=== PATIENT | male | born 1990 | race Caucasian/White ===

== ENCOUNTER 2020-07-10 16:59 | Emergency (ER) | payer MEDICAID, SELFPAY ==
[2020-07-10 18:20] VITALS: BP 141/79; PULSE 53; RESP 20; TEMP 36.9; O2SAT 100; BMI 31.1
[2020-07-10 20:17] VITALS: BP 127/67; PULSE 53; RESP 18; O2SAT 98
[2020-07-10] MEDS: Lidocaine HCl 1 % MPF 5 ML VIAL SUBCUT ×2 (20:50)
--- NOTE | 2020-07-10 21:02 | ED_ITS ---
HPI - Extremity Problem General Chief complaint: Extremity Problem Stated complaint: TOE INJ Time Seen by Provider: 07/10/20 20:24 History of Present Illness HPI Narrative: Patient complains of Right big toe ingrown nail which has been bothering him for many weeks getting worse, no redness no swelling no fever no chills Related Data Previous Rx's Medication Instructions Recorded hydrocortisone 1 appl TOPICAL BID PRN #30 g 07/10/20 ibuprofen 600 mg PO Q6H PRN #20 tab 07/10/20 Allergies Allergy/AdvReac Type Severity Reaction Status Date / Time No Known Allergies Allergy Unverified 03/29/20 17:20 Review of Systems Review of Systems: No fever no chills no rash no joint pain no recent illness no cough no nausea Yes all other systems are reviewed and are negative PMFSH Past Medical History Source: nursing notes reviewed Medical History (Updated 07/10/20 @ 21:07 by ROD De Anda) No known health problems Social History Social History Alcohol intake: never Smoked in Last 30 Days: No Use of substances other than those prescribed or required for medical reasons: No Advance Directives: No Advance Directives Information Provided: Yes Physical Exam Vital Signs: Vital Signs: Last Vital Signs Temp 98.4 F 07/10/20 18:20 Pulse 53 07/10/20 20:17 Resp 18 07/10/20 20:17 BP 127/67 07/10/20 20:17 Pulse Ox 98 07/10/20 20:17 Body Mass Index 31.1 General appearance comfortable relax no acute distress Head is normocephalic atraumatic The neck is supple Respiratory no distress Extremities the right big toe had tenderness and mild redness at the lateral aspect of the right big toe, full range of motion in the toe, no discharge no swelling no fluctuance, no significant redness beyond a little mild redness right over the ingrown section of the toenail Course Course Course Narrative: Procedure note right big toe is cleansed with Betadine Anesthesia was 8 cc of 1% lidocaine for digital block of the right big toe which was successful The ingrown section of toenail was flipped out with a forceps and then trimmed with a scissors with no remaining ingrown section and dressing was applied Discharge Plan Discharge Clinical Impression: Ingrown nail Patient Disposition: Home, Self-Care Additional Instructions: I removed a sharp section of ingrown nail which should relieve the discomfort in 1-2 days Return anytime if worse If this occurs again you can follow with a terra cotta roofer helper as they have a treatment that will prevent recurrence Prescriptions: New hydrocortisone 2.5 % cream 1 appl topical BID PRN (Reason: rash) Qty: 30 RF: 0 ibuprofen 600 mg tablet 600 mg PO Q6H PRN (Reason: pain) Qty: 20 RF: 0 Referrals: Collin Del Toro DPM [Physician] - 2 weeks (Right big toe ingrown nail) Stand Alone Forms: Work/School Release Interventions: ED Discharge Assessment Last Done: 07/10/20 21:22
[2020-07-10] MEDS: Ibuprofen 600 MG TABLET PO (21:14)
== END 2020-07-10 22:00 | disposition home or self-care (01) ==
PROVIDERS: Emergency Provider Emergency Medicine
DX: L60.0 Ingrowing nail (principal); M79.674 Pain in right toe(s); Z79.899 Other long term (current) drug therapy
CPT/HCPCS: 11750; 99284

== ENCOUNTER 2020-10-25 21:00 | Emergency (ER) | payer MEDICAID, SELFPAY ==
[2020-10-25 21:11] VITALS: BP 138/83; PULSE 73; RESP 18; TEMP 36.8; O2SAT 99; BMI 31.1
[2020-10-25 23:00] LABS: Glucose Urine UA NEG (NEG); Leukocyte Esterase Urine NEG (NEG); Nitrite Urine NEG (NEG); PH 7.5 (5.0-8.0); Urine Blood NEG (NEG); Urine Ketones NEG (NEG); Urine Protein NEG (NEG-TRACE)
[2020-10-25 23:01] LABS: Appearance Urine CLEAR; Color Urine YELLOW
[2020-10-25 23:06] LABS: Bacteria Urine TRACE /LPF; RBC Urine 0 /HPF (0); WBC Urine 0 /HPF (0-4)
--- NOTE | 2020-10-25 23:57 | ED.GENADULT ---
HPI - General Adult General Chief complaint: General Medical Stated complaint: uti? Time Seen by Provider: 10/25/20 23:49 Source: patient Mode of arrival: ambulatory Limitations: no limitations History of Present Illness HPI narrative: Patient comes to emergency room complaining of dysuria and 1 episode of hematuria. Patient states for the last 2 days every time that he urinates it ruvalcaba. Patient concerned that he had unprotected sex several days ago. Patient also concerned that he has been seeing penile discharge occasionally. Patient denies flank pain, no fever chills, denies any history of STDs in the past. Related Data Previous Rx's Medication Instructions Recorded hydrocortisone 1 appl TOPICAL BID PRN #30 g 07/10/20 ibuprofen 600 mg PO Q6H PRN #20 tab 07/10/20 doxycycline hyclate 100 mg PO BID #13 cap 10/26/20 Allergies Allergy/AdvReac Type Severity Reaction Status Date / Time No Known Allergies Allergy Unverified 03/29/20 17:20 Review of Systems Review of Systems: Constitutional : No Weight loss, No Fever, No Chills, No Night Sweats, No Fatigue, No Malaise ENT/Mouth : No Hearing loss, No Ear Pain, No Nasal Congestion, No Sinus Pain, No Hoarseness, No sore throat, No Rhinorrhea, No Swallowing Difficulty Eyes: No Eye Pain, No Swelling, No Redness, No Foreign Body, No Discharge, No Vision Changes Cardiovascular : No Chest Pain, No SOB, No Dyspnea on Exertion, No Orthopnea, No Edema, No Palpitations Respiratory : No Cough, No Sputum, No Wheezing, No Smoke Exposure, No Dyspnea Gastrointestinal : No Nausea, No Vomiting, No Diarrhea, No Constipation, No abdominal Pain, No Hematochezia, No Melena Genitourinary : Complaining of 1 episode of hematuria, frequent dysuria, and penile discharge, denies testicular pain Musculoskeletal : No joint pain, No Myalgias, No Joint Swelling Skin : No Skin Lesions, No rash Neuro : No Weakness, No Numbness, No Paresthesias, No Loss of Consciousness, No Dizziness, No Headache Psych : No Anxiety/Panic, No Depression, No SI/HI/AH/VH, No Social Issues, Heme/Lymph: No Bruising, No Bleeding,No Lymphadenopathy Endocrine : No Polyuria, No Polydipsia, No Temperature Intolerance [facility] Past Medical History Medical History No known health problems Social History Social History Alcohol intake: never Advance Directives: No Advance Directives Information Provided: No Physical Exam Vital Signs: Vital Signs: Last Vital Signs Temp 98.3 F 10/25/20 21:11 Pulse 73 10/25/20 21:11 Resp 18 10/25/20 21:11 BP 138/83 10/25/20 21:11 Pulse Ox 99 10/25/20 21:11 Body Mass Index 31.1 Appearance: Alert. Oriented X3. No acute distress. Eyes: Pupils equal, round and reactive to light. ENT: Pharynx normal. Neck: Normal inspection. Neck supple. No lymph nodes noted. No crepitus CVS: Normal heart rate and rhythm. Pulses normal. Normal S1 and S2 Respiratory: No respiratory distress. Breath sounds normal. No Wheezing. No rales Abdomen: Soft and nontender. No rigidity. No distention. : Normal male genitalia, no penile discharge Skin: Skin warm and dry. Normal skin color. Normal skin turgor. Extremities: No lower extremity edema. No lower extremity edema. No Lacerations. No Rash Neuro: Oriented X 3. No motor deficit. No sensory deficit. Moving all extermities. No slurred speech. Course Course Course Narrative: Patient's urinalysis is negative, gonorrhea chlamydia test will be pending. Patient agrees to be treated empirically. Medical Decision Making Lab Data Labs: Lab Results 10/25/20 Range/Units 22:50 Urine Color YELLOW Urine Appearance CLEAR Urine pH 7.5 (5.0-8.0) Ur Specific [place] 1.020 (1.005-1.025) Urine Protein NEG (NEG-TRACE) MG/DL Urine Glucose (UA) NEG (NEG) MG/DL Urine Ketones NEG (NEG) MG/DL Urine Blood NEG (NEG) Urine Nitrite NEG (NEG) Ur Leukocyte Esterase NEG (NEG) Urine RBC 0 (0) /HPF Urine WBC 0 (0-4) /HPF Ur Squamous Epith Cells NONE /LPF Urine Bacteria TRACE /LPF Discharge Plan Discharge Clinical Impression: Exposure to STD Patient Disposition: Home, Self-Care Instructions: Sexually Transmitted Diseases (ED), Safe Sex Practices (ED) Additional Instructions: Please follow-up with your primary care physician tomorrow. If you have any worsening or new symptoms, please return to the emergency room or call 911 Prescriptions: New doxycycline hyclate 100 mg capsule 100 mg PO BID Qty: 13 RF: 0 No Action hydrocortisone 2.5 % cream 1 appl topical BID PRN (Reason: rash) Qty: 30 RF: 0 ibuprofen 600 mg tablet 600 mg PO Q6H PRN (Reason: pain) Qty: 20 RF: 0
[2020-10-26] MEDS: cefTRIAXone sodium 500 MG, Lidocaine HCl 1 % MPF 1 ML IM (00:24)
[2020-10-26 09:08] LABS: CT PCR NOT DETECTED (Not Detect.); NG PCR NOT DETECTED (Not Detect.)
== END 2020-10-26 00:03 | disposition home or self-care (01) ==
PROVIDERS: Emergency Provider Emergency Medicine
DX: R30.0 Dysuria (principal); Z20.2 Contact with and (suspected) exposure to infections with a predominantly sexual mode of transmission; Z79.899 Other long term (current) drug therapy
CPT/HCPCS: 81001; 87491; 87591; 96372; 99283; J0696

== ENCOUNTER 2021-04-13 23:12 | Emergency (ER) | payer OTHER, MEDICAID, SELFPAY ==
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
--- NOTE | ~2021-04-13 | XR_ITS ---
EXAMINATION: XR RIBS, RIGHT CLINICAL INFORMATION: Rib pain COMPARISON: 11/08/2017 TECHNIQUE: 3 views of the right ribs were obtained. PA view of the chest. FINDINGS: Lungs are clear. No consolidation, pneumothorax, or pleural effusion. The cardiomediastinal silhouette and pulmonary vasculature are normal. Osseous structures are unremarkable. Ribs are intact. No fractures are identified. XR/XR ribs RT min 3V w CXR1V IMPRESSION: Clear lungs. No focal rib abnormality.
[2021-04-13 23:19] VITALS: BP 115/61; PULSE 67; RESP 16; TEMP 36.6; O2SAT 97; BMI 29.6
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
== END 2021-04-14 01:00 | disposition home or self-care (01) ==
PROVIDERS: Emergency Provider Emergency Medicine Emergency Medical Services
DX: S09.90XA Unspecified injury of head, initial encounter (principal); S39.92XA Unspecified injury of lower back, initial encounter; R07.81 Pleurodynia; G44.309 Post-traumatic headache, unspecified, not intractable; V43.52XA Car driver injured in collision with other type car in traffic accident, initial encounter; Y93.9 Activity, unspecified; Y92.410 Unspecified street and highway as the place of occurrence of the external cause; Y99.9 Unspecified external cause status; Z79.899 Other long term (current) drug therapy
CPT/HCPCS: 71101; 72100; 99283; 99284

== ENCOUNTER 2021-08-23 13:04 | Outpatient (REF) | payer MEDICAID, SELFPAY ==
--- NOTE | ~2021-08-23 | XR_ITS ---
EXAMINATION: XR FOOT, LEFT CLINICAL INFORMATION: Pain in the left great toe/bunion. COMPARISON: No similar priors. TECHNIQUE: AP, lateral, and oblique views of the left foot. FINDINGS: No acute fractures or malalignment. Hallux valgus. Questionable mild soft tissue swelling throughout the foot. No unexpected radiopaque foreign bodies. XR/XR foot LT min 3V IMPRESSION: No acute fractures or malalignment. Hallux valgus. Nonspecific mild soft tissue swelling.
== END 2021-08-23 13:05 | disposition home or self-care (01) ==
LOC: HO.XRAY 13:04
PROVIDERS: Visit Provider Registered Nurse
DX: M21.612 Bunion of left foot (principal); M25.572 Pain in left ankle and joints of left foot
CPT/HCPCS: 73630

== ENCOUNTER → 2022-01-02 14:56 | Outpatient (BNVA) | payer MEDICAID, SELFPAY | PROVIDERS: Referring Provider Emergency Medicine; Visit Provider Surgery | DX: L02.31 Cutaneous abscess of buttock (principal) | CPT/HCPCS: 99202 ==

== ENCOUNTER → 2022-02-06 13:35 | Outpatient (BNVA) | payer MEDICAID, SELFPAY | PROVIDERS: PCP Emergency Medicine; Referring Provider Emergency Medicine; Visit Provider Surgery | DX: L02.31 Cutaneous abscess of buttock (principal) | CPT/HCPCS: 99212 ==

== ENCOUNTER → 2022-05-19 09:09 | Outpatient (BNVA) | payer MEDICAID, SELFPAY | PROVIDERS: PCP Nurse Practitioner; Referring Provider Nurse Practitioner; Visit Provider Surgery | DX: L02.31 Cutaneous abscess of buttock (principal) | CPT/HCPCS: 99212 ==

== ENCOUNTER 2022-06-03 06:03 | Day surgery (SDC) | payer MEDICAID, SELFPAY ==
[2022-05-27 12:22] VITALS: BMI 30.2
--- NOTE | 2022-06-02 08:45 | P.CONAN_ITS ---
Documented by User: Aiyana Chavez NP 06/02/22 08:46 HPI - Anesthesia Eval Consult details Narrative: 31yo M for Right Excision Perianal Cyst,poss seton drainage,poss fistulotomy PMF Active Problems Active Problems: All Active Problems (Updated 01/02/22 @ 15:13 by Karan Harman MD) Abscess of right buttock (Acute) Past Medical History Medical History No known health problems Surgical History Surgical History History of removal of cyst Social History Social History Alcohol intake: never Patient Tobacco Use Status: Never used Tobacco Meds Allergies Allergy/AdvReac Type Severity Reaction Status Date / Time No Known Allergies Allergy Unverified 05/19/22 09:19 Exam Exam Date and Time: June 02, 2022 0845 Height,Weight and Vital Signs: Height 5 ft 8 in Weight 90.322 kg Assessment and Plan Assessment Anesthesia Assessment: Chart Reviewed Documented by User: Bradley Cárdenas MD 06/03/22 16:04 [facility] Past Medical History Medical History No known health problems Functional capacity: independent ambulation Family History Family history of problems with anesthesia: No Surgical History Surgical History History of removal of cyst History of Problems with Anesthesia: No Social History Social History Alcohol intake: never Patient Tobacco Use Status: Never used Tobacco Meds Allergies Allergy/AdvReac Type Severity Reaction Status Date / Time No Known Allergies Allergy Unverified 05/19/22 09:19 Exam Airway Mallampati Class: III TM Dist: >3cm Neck ROM: Full Loose/Missing/Broken Teeth: Yes (Fillings ) Heart: S1,S2 Lungs: b/l breath sounds Assessment and Plan Assessment Anesthesia Assessment: Anesthesia Plan Discussed Final Anesthetic Review Family History of Problems with Anesthesia: No History of Problems with Anesthesia: No NPO: Yes ASA Class: II Final Preanesthetic Review: Meds/Allgs Chart Reviewed, Consent Obtained/Reviewed and Anes Risks/Benef Reviewed Patient Risk: Intermediate Procedure Risk: Intermediate Anesthetic Plan Anesthetic Plan: GA Disposition: Standard PACU
[2022-06-03] VITALS (11 sets, daily range): BP systolic 120–142; BP diastolic 72–88; PULSE 49–78; RESP 16–18; TEMP 36.8; O2SAT 95–100; BMI 29.7
[2022-06-03] MEDS: Lactated Ringers 1,000 ML 100 ML IVCONT (06:36)
--- NOTE | 2022-06-03 07:21 | MHC.SHP ---
Pre-Procedural Eval Section A Date of Service: 06/03/22 The patient is an INPATIENT: No Changes since office visit: No Cold of Flu in the past 2 weeks, No New Medical Problems, No Changes in Medication and No Patient answered all questions The History & Physical has been completed within 30 days and I have reviewed it.: Yes Section B Chief Complaint: Cutaneous abscess of buttock Allergies: Allergies Allergy/AdvReac Type Severity Reaction Status Date / Time No Known Allergies Allergy Unverified 05/19/22 09:19 Plan I have reviewed the history and physical and performed a pertinent physical examination on my patient. No changes have occurred unless specified.
--- NOTE | 2022-06-03 08:29 | W.PM.OPN ---
Operative Note Operative Note Date of Service: 06/03/22 Narrative: Preop diagnosis: recurrent perianal abscess, question anal fistula Postop diagnosis: Recurrent perianal abscess secondary to a perianal cyst Procedure: Exam under anesthesia, excision of perianal cyst Surgeon: Karan Harman MD The patient is a 31-year-old male with a recurrent abscess on the right perianal area and drainage for several months. He had at induration with sign on the right perianal area about 3 cm from anal verge. This was suspicious for anal fistula so I explained to him that it would be best to exam under anesthesia in the operating room. He understood the technique of the procedure. He was aware of the risks, benefits, and alternatives. He was brought to the operating room placed in prone todd-knife position under general anesthesia via endotracheal tube. The buttocks were retracted with wide tape laterally. The perianal area was prepped and draped in the usual sterile fashion. A surgical time-out was done. The patient received Cefotan 2 g IV preoperatively Appears Examination of the perianal area revealed induration with a sinus as described above on the right side. I inserted the Lionel Conklin retractor and examined the anal canal circumferentially. There were no lesions seen within the anal canal. There was no obvious internal fistulous opening There was no cord-like patient extending from the perianal area to the anal canal. I inserted a probe into the sinus of the indurated area and this appeared to be blind. I then used hydrogen peroxide to inject into the sinus using a gauge 22 angio catheter see if there was any effluent into the anal canal that would represent a sinus tract. We did this multiple times without any signs of any effluent the anal canal. Therefore there did not appear to be any sinus tract on the area of induration to the anal canal. I therefore proceeded to excise this indurated area after unroofing this. The excised area was about 2 cm in diameter . This was sent as a specimen . I closed the incision with full-thickness 3-0 interrupted sutures. I infiltrated the perianal area with Marcaine 0.5% for postop LEE ANN. Dressings were applied. The procedure was completed The patient tolerated well. There were no major complications. Initial final counts of sponges and instruments were correct. Estimated blood loss was less than 10 cc The patient was extubated the difficulty and transferred to the recovery room with stable vital signs.
[2022-06-03] MEDS: oxyCODONE HCl Immed Release 5 MG TABLET PO (09:05)
[2022-06-03] MEDS: Acetaminophen 325 MG TABLET 650 MG PO (09:06)
[2022-06-03] MEDS: fentaNYL citrate/PF 100 MCG/2 ML VIAL 25 MCG IVPUSH ×2 (09:06→09:20)
== END 2022-06-03 11:10 | disposition home or self-care (01) ==
PROVIDERS: Visit Provider Surgery
PROC: (CPT 46922; principal; 2022-06-03 07:30)
DX: K62.89 Other specified diseases of anus and rectum (principal); K61.0 Anal abscess
CPT/HCPCS: 46922; 88304; 88305; J1100; J2250; J2405; J2795; J3010

== ENCOUNTER 2024-11-11 09:47 | Outpatient (REF) | payer MEDICAID, SELFPAY ==
--- OUTSIDE RECORDS SUMMARY | 2024-11-11 10:34 | XMS_ITS | Encounter Summary ---
Author Organization [employer] Address [address] [place] [address] 7 [place] [address] Care Team Providers Care Cotton Weigher Name Role Phone [place] [facility] Primary Care Provider [phone] Reason for Visit * Reason Onset Date Comments Lab Orders 11/10/2024 Encounter Details Date Type Department Care Team ([facility] st Contact Info) Description 11/10/2024 Telephone [facility] [place] [facility] [address] [place], [place] [id number] [facility] [address] [place] [address] Lab Orders Social History Tobacco Use Types Packs/Day Years Used Date Smoking Tobacco: Never Smokeless Tobacco: Never Alcohol Use Standard Drinks/Week Comments Yes 0 (1 standard drink = 0.6 oz pur e alcohol) Rare occasions Depression Answer Date Recorded Patient Health Questionnaire-9 Score 1 11/11/2024 Patient Health Questionnaire-9 Score 1 11/11/2024 Last PHQ-9: Questionnaire Data Not on file 0 11/11/2024 Housing Stability Answer Date Recorded What is your housing situation today? I have maurizio colon 11/11/[address] you li ve. Do you have problems with any of the following? None of the above 11/11/2024 Food Insecurity Answer Date Recorded Within the past 12 months, y ou worried that your food would run out before you got money to buy more: Never True 11/11/2024 Within the past 12 months,th e food you bought just didn't last and you didn't have enough money to get more: Never True 08/2024 Transportation Answer Date Recorded In the past 12 months, has l ack of transportation kept you from medical appts, meetings, work or from getting things needed for daily living? No 11/11/2024 Utilities Answer Date Recorded In the past 12 months, has t he electric, gas, oil or water company threatened to shut off services in your home? No 11/11/2024 Depression Answer Date Recorded Patient Health Questionnaire-2 Score 1 11/11/2024 Internet Access Answer Date Recorded Internet Access Q1 Yes 11/11/2024 Internet Access Q2 Not on file 11/11/2024 Sex and Gender Information Value Date Recorded Sex Assigned at Male 05/12/2022 10:16 AM EDT Legal Sex Male 10:16 AM EDT Gender Identity Male 05/12/2022 10:16 AM EDT Sexual Orientation Straight 05/12/2022 10 :16 AM EDT documented as of this encounter Miscellaneous Notes * Telephone Encounter - Gail Bergman RN - 11/10/2024 10:11 AM EDT TC returned to pt., pt. Is concerned he is have neuropathy as he has had sharp, stabbing pain to soles of both feet x months. Pt. Reports pains come and go at random times even when resting. Pt. Reports he has tried taking ibuprofen without positive effect. Pt. Agrees to appt. Tomorrow at 9;15am with BRUNILDA Parks for evaluation. * Telephone Encounter - Chase Hammond - 11/10/2024 8:57 AM EDT TC from pt requesting lab orders to get Blood test done. Pt was stating he has concerns of Diabetes. Contact pt at [phone] documented in this encounter Plan of Treatment Not on file documented as of this encounter Visit Diagnoses Not on filedocumented in this encounter Additional Health Concerns Assessment Noted Time PHQ-9 Depression Total Score: 3 10/21/19 23 9:51 AM EDT documented as of this encounter Care Teams Cotton Weigher Relationship Specialty Start Date End Date Adina Reyna FNP [address] [place] [id number] PCP - General Family Medicine 01/15/22 documented as of this encounter
--- OUTSIDE RECORDS SUMMARY | 2024-11-11 10:34 | XMS_ITS | Encounter Summary ---
Author Organization [employer] Address [address] [place] [address] Care Team Providers Care Production Control Planner Name Role Phone Adina Reyna PLANIMETER OPERATOR Primary Care Provider [phone] Encounter Details Date Type Department Care Team (Latest Contact Info) Description 11/11/2024 Travel Social History Tobacco Use Types Packs/Day Years [...] AM EDT documented as of this encounter Plan of Treatment Not on file documented as of this encounter Visit Diagnoses Not on filedocumented in this encounter Additional Health Concerns Assessment Noted Time PHQ-9 Depression Total Score: 1 11/12/19 25 9:43 AM EDT documented as of this encounter Care Teams Production Control Planner Relationship Specialty Start Date End Date Adina Reyna FNP [address] [place] [address] PCP - General Family Medicine 01/15/22 documented as of this encounter
--- OUTSIDE RECORDS SUMMARY | 2024-11-11 10:34 | XMS_ITS | Encounter Summary ---
Author Organization [employer] Address [address] [place] [address] [address] [place] [address] Care Team Providers Care Section Chief Name Role Phone Maribell Adina GILMORE Primary Care Provider [phone] Encounter Details Date Type Department Care Team (Latest Contact Info) Description 09/12/2020 [facility] CONVERSIONS Dental, Provider, DDS Social History Tobacco Use Types Packs/Day Years Used Date Smoking Tobacco: Never Assessed Sex and Gender Information Value Date Recorded Sex Assigned at Male 05/12/2022 10:16 AM EDT Legal Sex Male 10:16 AM EDT Gender Identity Male 05/12/2022 10:16 AM EDT Sexual Orientation Straight 05/12/2022 10 :16 AM EDT documented as of this encounter Plan of Treatment Not on file documented as of this encounter Visit Diagnoses Not on filedocumented in this encounter Care Teams Section Chief Relationship Specialty Start Date End Date Adina Reyna FNP [address] [place] [id number] PCP - General Family Medicine 01/15/22 documented as of this encounter
--- OUTSIDE RECORDS SUMMARY | 2024-11-11 10:34 | XMS_ITS | Clinical Summary ---
Author Organization [employer] Address [address] [facility] 7 [place] [address] Care Team Providers Care Peoplesoft Hcm Consultant Name Role Phone Adina Reyna [facility] Primary Care Provider [phone] Allergies No known active allergies Medications traZODone (Desyrel) 50 MG tabletIndication s:Insomnia, unspecified type Take 1 tablet (50 mg) by mouth at bedtime. 30 tablet 2 3 Active triamcinolone (Kenalog) 0.1 % ointmentIndicati ons:Flexural eczema Apply topically 2 times daily. 453 g 2 3 Active Additional Information Patient not taking.Reported on 08/10/2024 diazePAM (Valium) 2 MG tablet Take 1 tablet (2 mg) by mouth every 8 (eight) hours if needed for anxiety for up to 10 days. 30 tablet 3 Active Active Problems Problem Noted Date Diagnosed Date Dental caries 08/10/2024 Dental plaque 01/27/2023 Gingivitis due to dental plaque 01/27/2023 Anxiety with depression 01/01/2023 Overview (01/01/2023): ?? Trazodone PRN for insomnia ?? Declines pharmacotherapy Assessment & Plan (01/01/2023 11:01 AM EDT): ?? Will resubmit [facility] referral ?? Contact HC if sx worsen or experiencing thoughts of SI or self harm. Pt has [facility] crisis contact information Healthcare maintenance 01/01/2023 Overview (01/01/2023): ?? STI screening negative 11/2022 ?? Declines repeat Hep B vaccine 12/2022 Eczema 04/05/2014 Overview (01/01/2023): ?? Triamcinolone PRN Assessment & Plan (01/01/2023 11:01 AM EDT): ?? Refill provided Resolved Problems Problem Noted Date Diagnosed Date Resolved Date Contact with and (suspected) exposure to other viral communicable diseases 05/06/20202022 Encounters Date Type Department Care Team Description 11/11/2024 9:15 AM EDT [facility] Visit [facility] [address] [place] [id number] Kasey Hightower CNP Encounter for assessment of STD exposure (Primary Dx); Encounter for screening examination for sexually transmitted disease; Healthcare maintenance; Plantar fasciitis 11/11/2024 Travel 11/10/2024 Telephone [facility] [address] [place] [address] Kasey Hightower CNP Chart Prep 11/10/2024 Telephone [facility] [address] [place] [address] PatokaAdina [facility] Lab Orders from Last 3 Months Immunizations Name Administration Dates Next Due Influenza injectable quadriv alent preservative free 04/20/2020 Tdap 10/10/2020,12/12/2015,04/05/2014 Family History Medical History Relation Name Comments Breast cancer Maternal Grandmother Colon cancer Neg Hx Relation Name Status Comments Maternal Grandmother Social History Tobacco Use Types Packs/Day Years Used Date Smoking Tobacco: Never Smokeless Tobacco: Never Tobacco Cessation:Counseling Given: Not Answered Alcohol Use Standard Drinks/Week Comments Yes 0 [...] Orientation Straight 05/12/2022 10 :16 AM EDT Last Filed Vital Signs Vital Sign Reading Time Taken Comments Blood Pressure 131/80 11/11/2024 9:28 AM EDT Pulse 72 11/11/2024 9:28 AM EDT Temperature 36.6 ??C (97.8 ??F) 11/11/2024 9:28 AM ED T Respiratory Rate 20 11/11/2024 9:28 AM EDT Oxygen Saturation 98% 11/11/2024 9:28 AM EDT Inhaled Oxygen Concentration - - Weight 95.7 kg (211 lb) 11/11/2024 9:28 AM EDT Height 172.7 cm (5' 8 ) 11/11/2024 9:28 AM EDT Body Mass Index 32.08 11/11/2024 9:28 AM EDT Plan of Treatment Health Maintenance Due Date Last Done Comments Family Planning (PISQ) 10/31/2006 Hepatitis A Vaccines (1 of 2 - Risk 2-dose series) 10/31/2010 Hepatitis B Vaccines (1 of 3 - 19+ 3-dose series) 10/31/2010 Dental Oral Exam 07/31/2023 01/27/2023, , 05/26/2019, Additional history exists Dental Prophylaxis 08/16/2023 02/12/2023, 0 09/12/2020, 06/22/2019 Dental X-Ray: Bitewings 01/29/2024 01/28/20 23, 09/05/2020, 05/26/2019 COVID-19 Vaccine ( season) 2024 05/01/2021 Influenza Vaccine (#1) 2024 04/20/2020 Alcohol/Substance Use Screening 11/11/2025 11/11/2024 Depression Screening 11/11/2025 11/11/2024, 11/12/19 SDOH Screening 11/11/2025 11/11/2024 Tobacco Screening 11/11/2025 11/11/2024 Dental X-Ray: Full Mouth 01/28/2026 023, 06/22/2019, 05/26/2019 DTaP/Tdap/Td Vaccines (4 - Td or Tdap) 10/10/2030 10/10/2020, 12/12/2015, 04/05/2014 Zoster Vaccines (1 of 2) 10/31/2041 RSV Patients and Patients Aged 60 years or older (1 - 1-dose 75+ series) 10/31/2066 HIV Screening Completed 10/20/2022, 11/30/2020 Hepatitis C Screening Completed 10/20/2022 , 10/02/2021, 11/30/2020 HIB Vaccines Aged Out No longer eligi ble based on patient's age to complete this topic HPV Vaccines Aged Out No longer eligi ble based on patient's age to complete this topic IPV Vaccines Aged Out No longer eligi ble based on patient's age to complete this topic Meningococcal Vaccine Aged Out No liza cirilo eligible based on patient's age to complete this topic Pneumococcal Vaccine: Pediatrics (0 to 5 Years) and At-Risk Patients (6 to 49) Years) Aged Out No longer eligible based on patient's age to complete this topic RSV under 20 months Aged Out No longe r eligible based on patient's age to complete this topic Rotavirus Vaccines Aged Out No longer eligible based on patient's age to complete this topic Procedures Procedure Name Priority Date/Time Associated Diagnosis Comments PROPHYLAXIS - ADULT Routine 02/12/2023 1 0:00 AM EDT Dental plaque INTRAORAL - COMPLETE SERIES OF RADIOGRAPHIC IMAGES Routine 01/27/2023 2:30 PM EDT PERIODIC ORAL EVALUATION - ESTABLISHED PATIENT Routine 01/27/2023 2:30 PM EDT HEPATITIS PANEL, GENERAL Routine 10/20/2022 10:11 AM EDT Encounter for screening examination for sexually transmitted disease HIV 1/2 ANTIGEN/ANTIBODY, FOURTH GENERATION W/RFL Routine 10/20/2022 10:11 AM EDT Encounter for screening examination for sexually transmitted disease from Last 3 Months or Most Recently Relevant to Health Maintenance Results * (ABNORMAL) Hepatitis Panel, General (10/20/2022 10:11 AM EDT) Hepatitis A Antibody Total NON-REACT MIGUEL NON-REACT [employer]EL[employer] [place] [facility] Comment: For additional information, please refer to http://FabAlley.Miproto/faq/EWO528 (This link is being provided for informational/ educational purposes only.) Hepatitis B Surface Antibody QL REACTIVE( A) NON-REACT MIGUEL [facility] [place] [facility] Hepatitis B Surface Ag NON-REACT MIGUEL NON-REACT MIGUEL [facility] [place] [facility] Hepatitis B Core Antibody Total NON-REACT MIGUEL NON-REACT MIGUEL [facility] Hepatitis C Antibody NON-REACT MIGUEL NON-REACT MIGUEL [facility] [place] [facility] Index 0.15 <1.00 [facility] [place] [facility] Comment: HCV antibody was non-reactive. There is no laboratory evidence of HCV infection. In most cases, no further action is required. However, if recent HCV exposure is suspected, a test for HCV RNA (test code 54843) is suggested. For additional information please refer to http://FabAlley.Miproto/faq/MSJ15b5 (This link is being provided for informational/ educational purposes only.) 10/20/2022 10:1 1 AM EDT 10/20/2022 10:11 AM EDT Narrative [facility] - 10/21/2022 4:19 PM EDT FASTING:YES FASTING: YES [facility] LAB BLOOD ORDERABLES Final Re sult Performing Organization Address City/[facility]/ZIP Co de Phone Number [facility] [address], [place] [address] [facility] [place] [email or web address] [address] [place] [address] * HIV-1/2 Antigen and Antibodies, Fourth Generation, with Reflexes (10/20/2022 10:11 AM EDT) Pathologist [facility] HIV Antigen/Antibody, 4th Generation NON-REAC TIVE NON-REAC TIVE [facility] [place] [email or web address] Comment: HIV-1 antigen and HIV-1/HIV-2 antibodies were not detected. There is no laboratory evidence of HIV infection. PLEASE NOTE: This information has been disclosed to you from records whose confidentiality may be protected by state law. ??If your state requires such protection, then the state law prohibits you from making any further disclosure of the information without the specific written consent of the person to whom it pertains, or as otherwise permitted by law. A general authorization for the release of medical or other information is NOT sufficient for this purpose. ?? For additional information please refer to http://education.Miproto/faq/LWZ251 (This link is being provided for informational/ educational purposes only.) The performance of this assay has not been clinically validated in patients less than 2 years old. Blood Venous blood specimen / Unknown 10/20/2022 10:11 AM EDT 10/20/2022 10:11 AM EDT Narrative [facility] - 10/21/2022 4:19 PM EDT FASTING:YES FASTING: YES [facility] LAB BLOOD ORDERABLES Final Re sult Performing Organization Address City/[facility]/ZIP Co de Phone Number [facility] [address], [place] [address] [facility] [place] [employer] [facility] [address] [place] [address] from Last 3 Months or Most Recently Relevant to Health Maintenance Insurance HSN FULL [facility] PPO DENTAL - HSN PARTIAL (MEDICAID) Care Teams Peoplesoft Hcm Consultant Relationship Specialty Start Date End Date Adina Reyna FNP [address] [place] [address] [place] [address] PCP - General Family Medicine 01/15/22
--- OUTSIDE RECORDS SUMMARY | 2024-11-11 10:34 | XMS_ITS | Encounter Summary ---
Author Organization [employer] Address [address] [place] [address] 7 [place] [address] Care Team Providers Care Exercise Instructor Name Role Phone Maribell Adina GILMORE Primary Care Provider [phone] Encounter Details Date Type Department Care Team (Latest Contact Info) Description 09/05/2020 Abstract [facility] CONVERSIONS Dental, Provider, DDS Social [...] on filedocumented in this encounter Care Teams Exercise Instructor Relationship Specialty Start Date End Date Adina Reyna FNP [address] [place] [id number] PCP - General Family Medicine 01/15/22 documented as of this encounter
--- OUTSIDE RECORDS SUMMARY | 2024-11-11 10:34 | XMS_ITS | Encounter Summary ---
Author Organization [employer] Address [address] [place] [address] [place] [address] Care Team Providers Care Carport Erector Name Role Phone Adina Reyna TESTING MACHINE OPERATOR Primary Care Provider Encounter Details Date Type Department Care Team ([facility] st Contact Info) Description 11/11/2024 9:15 AM EDT Office Visit [facility] [address] [place], [place] [phone] Kasey Hightower CNP [address] [place], [place] [phone] Encounter for assessment of STD exposure (Primary Dx); Encounter for screening examination for sexually transmitted disease; Healthcare maintenance; Plantar fasciitis Social History Tobacco Use Types Packs/Day Years [...] AM EDT documented as of this encounter Last Filed Vital Signs Vital Sign Reading [...] Mass Index 32.08 11/11/2024 9:28 AM EDT documented in this encounter Plan of Treatment Scheduled Orders Name Type Priority Associated Diagnoses Orde r Schedule Hemoglobin A1c Lab Routine Healthcare maintenance Expected: 11/11/2024 (Approximate), Expires: 11/11/2025 HIV-1/2 Antigen and Antibodies, Fourth Generation, with Reflexes Lab Routine Encounter for screening examination for sexually transmitted disease Expected: 11/11/2024 (Approximate), Expires: 11/11/2025 Hepatitis C Antibody with Reflex to HCV, RNA, Quantitative, Real-Time PCR Lab Routine Encounter for screening examination for sexually transmitted disease Expected: 11/11/2024, Expires: 11/11/2025 Chlamydia/N. Gonorrhoeae RNA, TMA, Urogenitial Microbiology Routine Encounter for screening examination for sexually transmitted disease Ordered: 11/11/2024 RPR (Monitor) with Reflex to??Titer Lab Routine Encounter for screening examination for sexually transmitted disease Expected: 11/11/2024, Expires: 11/11/2025 documented as of this encounter Visit Diagnoses Diagnosis Encounter for assessment of STD exposure- Primary Encounter for screening examination for sexually transmitted disease Healthcare maintenance Plantar fasciitis Plantar fascial fibromatosis documented in this encounter Additional Health Concerns Assessment Noted Time PHQ-9 Depression Total Score: 1 11/12/19 25 9:43 AM EDT documented as of this encounter Care Teams Carport Erector Relationship Specialty Start Date End Date Adina Reyna FNP [address] [place] [id number] PCP - General Family Medicine 01/15/22 documented as of this encounter
--- OUTSIDE RECORDS SUMMARY | 2024-11-11 10:34 | XMS_ITS | Clinical Summary ---
Author Organization [facility] Address [address] [place] [address] Care Team Providers Care Qa Reviewer Name Role Phone Zeus Lou MD Primary Care Provider [phone] Surgical History Surgery Date Site/Laterality Comments OTHER SURGICAL HISTORY PROCEDURE: DENIES PREVIOUS SURGERY Medical History Medical History Date Comments Childhood asthma DX:Childhood as thma Family History Medical History Relation Name Comments Eczema Brother 1 No Known Problems Brother 2 No Known Problems Father Prostate cancer Maternal Grandfather Breast cancer Maternal Grandmother No Known Problems Mother No Known Problems Paternal Grandfather No Known Problems Paternal Grandmother Asthma Sister 1 Eczema Sister 2 Relation Name Status Comments Brother 1 Alive Brother 2 Alive Father Alive Maternal Grandfather Maternal Grandmother Alive Mother Alive Paternal Grandfather Alive Paternal Grandmother Alive Sister 1 Alive Sister 2 Alive Social History Tobacco Use Types Packs/Day Years Used Date Smoking Tobacco: Never Smokeless Tobacco: Never Alcohol Use Standard Drinks/Week Comments Yes 0 (1 standard drink = 0.6 oz pur e alcohol) Sex and Gender Information Value Date Recorded Sex Assigned at Not on file Legal Sex Male 9:24 AM EST Gender Identity Not on file Sexual Orientation Not on file Obstetrics History Plan of Treatment Health Maintenance Due Date Last Done Comments Hepatitis B Vaccines (1 of 3 - 19+ 3-dose series) 10/31/2010 COVID-19 Vaccine (2023-2 5 season) 2024 Influenza Vaccine (Season Ended) 2025 DTaP,Tdap,and Td Vaccines (2 - Td or Tdap) 12/11/2025 12/12/2015 HIB Vaccines Aged Out No longer eligi ble based on patient's age to complete this topic HPV Vaccines Aged Out No longer eligi ble based on patient's age to complete this topic Hepatitis A Vaccines Aged Out No long er eligible based on patient's age to complete this topic IPV Vaccines Aged Out No longer eligi ble based on patient's age to complete this topic MMR Vaccines Aged Out No longer eligi ble based on patient's age to complete this topic Meningococcal ACWY Vaccine Aged Out N o longer eligible based on patient's age to complete this topic Meningococcal B Vaccine Aged Out No l onger eligible based on patient's age to complete this topic Pneumococcal Vaccine: Pediat rics (0 to 5 Years) and At-Risk Patients (6 to 64 Years) Aged Out No longer eligi ble based on patient's age to complete this topic RSV Immunization Patients Un noa 20 months Aged Out No longer eligible b ased on patient's age to complete this topic Varicella Vaccines Aged Out No longer eligible based on patient's age to complete this topic Care Teams Qa Reviewer Relationship Specialty Start Date End Date Zeus Lou MD [address] [place] [phone] PCP - General Internal Medicine 09/14/19
--- OUTSIDE RECORDS SUMMARY | 2024-11-11 10:34 | XMS_ITS | Encounter Summary ---
Author Organization [employer] Address [address] [place] [address] 7 [place] [address] Care Team Providers Care Rv Parts And Service Director Name Role Phone Maribell Adina GILMORE Primary Care Provider [phone] Encounter Details Date Type Department Care Team (Latest Contact Info) Description 05/26/2019 Abstract [facility] CONVERSIONS Dental, Provider, DDS Social [...] on filedocumented in this encounter Care Teams Rv Parts And Service Director Relationship Specialty Start Date End Date Adina Reyna FNP [address] [place] [id number] PCP - General Family Medicine 01/15/22 documented as of this encounter
--- OUTSIDE RECORDS SUMMARY | 2024-11-11 10:34 | XMS_ITS | Encounter Summary ---
Author Organization [employer] Address [address] [place] [address] [place] [address] Care Team Providers Care Validation Architect Name Role Phone Adina Reyna LEAD JAVA PROGRAMMER Primary Care Provider [phone] Reason for Visit * Reason Onset Date Comments Chart Prep 11/10/2024 Encounter Details Date Type Department Care Team (Late st Contact Info) Description 11/10/2024 Telephone [facility] [address] [place] [address] Kasey Hightower CNP [address] [place] [address] Chart Prep Social History Tobacco Use Types Packs/Day Years [...] encounter Miscellaneous Notes * Telephone Encounter - Britney Penn [place] - 11/10/2024 2:01 PM EDT Chart Prep Labs: done Images: not applicable Referrals: not applicable Vaccines due: Covid, Flu, Hep B, and Hep A Screenings: not applicable Overdue care gaps: SBIRT, SDOH, and PHQ-9 documented in this encounter Plan of Treatment Not on file documented as of this encounter Visit Diagnoses Not on filedocumented in this encounter Additional Health Concerns Assessment Noted Time PHQ-9 Depression Total Score: 3 10/21/19 23 9:51 AM EDT documented as of this encounter Care Teams Validation Architect Relationship Specialty Start Date End Date Adina Reyna FNP [address] [place] [address] PCP - General Family Medicine 01/15/22 documented as of this encounter
[2024-11-11 11:49] LABS: Estimated Average Glucose 105 mg/dL; Hemoglobin A1C 128.2185 umol/L; Hemoglobin A1c % 5.3 % (<6.0); Total Hemoglobin (HGBA1C) 3729.2225 umol/L
[2024-11-11 11:55] LABS: HIV AB/AG Nonreactive (Nonreactive); HIV Num 1 0.07 S/CO (0.00-0.99); ~HepC Num1 0.11 S/CO (0.00-0.79); ~Hepatitis C Antibody Nonreactive (Nonreactive)
[2024-11-13 16:13] LABS: RPR Rapid Plasma Reagin NON-REACTIVE (NON-REACTIVE)
== END 2024-11-11 09:48 | disposition home or self-care (01) ==
LOC: HO.HHCL 09:47
DX: Z00.00 Encounter for general adult medical examination without abnormal findings (principal); Z11.4 Encounter for screening for human immunodeficiency virus [HIV]; Z11.3 Encounter for screening for infections with a predominantly sexual mode of transmission
CPT/HCPCS: 36415; 83036; 86592; 86803; 87389